=== PATIENT | male | born 1990 | race Caucasian/White ===

== ENCOUNTER 2016-08-20 11:22 | Emergency (ER) | payer BC, OTHER ==
[~2016-08-20] VITALS: Ht 182.9 cm; Wt 71.9 kg
[~2016-08-20 11:22] MED LIST: FISHOIL PO
[2016-08-20 11:27] VITALS: TEMP 36.8; Ht 182.9 cm; Wt 71.9 kg
[2016-08-20 12:00] LABS: BASO % 0.4 %; BASO ABS # 0.02 K/uL (0-0.2); COMPLETE YES; HEMATOCRIT 41.6 % (42-52); IG% 0.4 %; LYMPH % 44.4 %; LYMPH ABS # 2.22 K/uL (1.2-3.4); MEAN CELL VOLUME 83.4 fL (80-100); MEAN CORPUSCULAR HEMOGLOBIN 30.1 pg (25-34); MEAN CORPUSCULAR HGB CONC 36.1 g/dl (32-36); MEAN PLATELET VOLUME 9.4 fL (7.4-10.4); MONO % 5.8 %; PLATELET COUNT 204 K/uL (130-400); RED BLOOD COUNT 4.99 M/uL (4.7-6.1)
[2016-08-20 12:29] LABS: ALT/SGPT 24 U/L (12-78); BLOOD UREA NITROGEN 11 mg/dl (7-18); BUN/CREATININE RATIO 10.6 (10-20); CARBON DIOXIDE 28 mmol/L (21-32); CHLORIDE 104 mmol/L (98-107); GLUCOSE 100 mg/dl (70-99); POTASSIUM 3.6 mmol/L (3.5-5.1); SODIUM 140 mmol/L (136-145)
[2016-08-20 12:33] LABS: ALB/GLOB RATIO 1.6 (0.9-2); ALKALINE PHOSPHATASE 80 U/L (45-117); AST/SGOT 13 U/L (15-37)
[2016-08-20 13:00] VITALS: BP 137/80; O2SAT 98
[2016-08-20] MEDS ORDERED: MELA3TAB PO (13:25)
--- NOTE | 2016-08-20 13:51 | DIAGNOSTIC IMAGING REPORT ---
CHEST 2 VIEWS ROUTINE CLINICAL HISTORY: left sided chest pain dyspnea COMPARISON STUDY: 06/11/2006 FINDINGS: The bones soft tissues and hemidiaphragms are normal. The cardiomediastinal silhouette is normal. The lungs are clear. The pulmonary vasculature is normal. IMPRESSION: Negative chest. Electronically signed by: Eldon Fritz M.D. 08/20/2016 1:49 PM Dictated Date/Time: 08/20/2016 1:48 PM
[2016-08-20 13:52] VITALS: PULSE 69
--- NOTE | 2016-08-20 14:15 | EMERGENCY ROOM VISIT NOTE ---
History First contact with patient: 11:33 Chief Complaint: CHEST PAIN Stated Complaint: LEFT SIDED CHEST PAIN Nursing Triage Summary: PT VERBALIZES HE WOKE UP WITH SHARP CHEST PAIN, HAS NOT GONE AWAY. PT VERBALIZES PAIN IS IN LEFT UPPER CHEST 3/10. DENIES SOB. History of Present Illness The patient is a 25 year old male who presents to the Emergency Room with complaints of left-sided chest pain and she can this morning. The patient states that he has had a sharp pain in the left side of his chest since he woke up several hours ago. He states the pain is worse when he is sitting than when he is standing. He does have some mild pain in the right side of the chest as well, but states it is worse on the left. He has had similar symptoms in the past when he has had pneumonia. He rates the discomfort a 3/10. The patient denies any shortness of breath. He denies any cough, fevers or recent illnesses. He denies any family history of heart disease at a young age. He denies any radiation of the pain. He has not taken any medications at home for his discomfort. Review of Systems A complete 10-point Review of Systems was discussed with the patient, with pertinent positives and negatives listed in the History of Present Illness. All remaining Review of Systems questions can be considered negative unless otherwise specified. Social History Smoking Status: Never Smoker Alcohol Use: occasionally Marital Status: single Occupation Status: employed Current/Historical Medications Scheduled Melatonin (Melatonin), 1 TAB PO HS Allergies Coded Allergies: Azithromycin (Verified Allergy, Mild, HIVES, 08/20/16) Physical Exam Vital Signs Date Time Temp Pulse Resp B/P Pulse Ox O2 Delivery O2 Flow Rate FiO2 08/20/16 13:52 69 08/20/16 13:00 80 18 137/80 98 Room Air 08/20/16 11:27 36.8 93 18 123/80 98 Room Air Physical Exam VITALS: Vitals are noted on the nurse's note and reviewed by myself. Vital signs stable. GENERAL: This is a 25-year-old male, in no acute distress, nondiaphoretic, well- developed well-nourished. SKIN: Capillary reflex less than 2 seconds. HEENT: Normocephalic. PERRLA. EOMI. Nares patent. Mucous membranes moist. Neck is supple without nuchal rigidity. HEART: Regular rate and rhythm without murmurs gallops or rubs. LUNGS: Clear to auscultation bilaterally without wheezes, rales or rhonchi. No retractions or accessory muscle use. ABDOMEN: Positive bowel sounds x 4. Soft, nontender to palpation. NEURO: Patient was alert and oriented to person place and time. Medical Decision & Procedures ER Provider Diagnostic Interpretation: CHEST 2 VIEWS ROUTINE CLINICAL HISTORY: left sided chest pain dyspnea COMPARISON STUDY: 06/11/2006 FINDINGS: The bones soft tissues and hemidiaphragms are normal. The cardiomediastinal silhouette is normal. The lungs are clear. The pulmonary vasculature is normal. IMPRESSION: Negative chest. Laboratory Results 08/20/16 11:40 Red Blood Count 4.99, Mean Corpuscular Volume 83.4, Mean Corpuscular Hemoglobin 30.1, Mean Corpuscular Hemoglobin Concent 36.1, Mean Platelet Volume 9.4, Neutrophils (%) (Auto) 48.0, Lymphocytes (%) (Auto) 44.4, Monocytes (%) (Auto) 5.8, Eosinophils (%) (Auto) 1.0, Basophils (%) (Auto) 0.4, Neutrophils # (Auto) 2.40, Lymphocytes # (Auto) 2.22, Monocytes # (Auto) 0.29, Eosinophils # (Auto) 0.05, Basophils # (Auto) 0.02 08/20/16 11:40 Test 08/20/16 11:40 White Blood Count 5.00 K/uL (4.8-10.8) Red Blood Count 4.99 M/uL (4.7-6.1) Hemoglobin 15.0 g/dL (14.0-18.0) Hematocrit 41.6 % (42-52) Mean Corpuscular Volume 83.4 fL (80-100) Mean Corpuscular Hemoglobin 30.1 pg (25-34) Mean Corpuscular Hemoglobin Concent 36.1 g/dl (32-36) Platelet Count 204 K/uL (130-400) Mean Platelet Volume 9.4 fL (7.4-10.4) Neutrophils (%) (Auto) 48.0 % Lymphocytes (%) (Auto) 44.4 % Monocytes (%) (Auto) 5.8 % Eosinophils (%) (Auto) 1.0 % Basophils (%) (Auto) 0.4 % Neutrophils # (Auto) 2.40 K/uL (1.4-6.5) Lymphocytes # (Auto) 2.22 K/uL (1.2-3.4) Monocytes # (Auto) 0.29 K/uL (0.11-0.59) Eosinophils # (Auto) 0.05 K/uL (0-0.5) Basophils # (Auto) 0.02 K/uL (0-0.2) RDW Standard Deviation 37.1 fL (36.4-46.3) RDW Coefficient of Variation 12.2 % (11.5-14.5) Immature Granulocyte % (Auto) 0.4 % Immature Granulocyte # (Auto) 0.02 K/uL (0.00-0.02) Anion Gap 8.0 mmol/L (3-11) Est Creatinine Clear Calc Drug Dose 113.8 ml/min Estimated GFR () 119.9 Estimated GFR (Non- 103.4 BUN/Creatinine Ratio 10.6 (10-20) Calcium Level 9.0 mg/dl (8.5-10.1) Total Bilirubin 1.1 mg/dl (0.2-1) Aspartate Amino Transf (AST/SGOT) 13 U/L (15-37) Alanine Aminotransferase (ALT/SGPT) 24 U/L (12-78) Alkaline Phosphatase 80 U/L (45-117) Troponin I < 0.015 ng/ml (0-0.045) Total Protein 7.3 gm/dl (6.4-8.2) Albumin 4.5 gm/dl (3.4-5.0) Globulin 2.8 gm/dl (2.5-4.0) Albumin/Globulin Ratio 1.6 (0.9-2) ECG Indication: chest pain Rate (beats per minute): 75 Rhythm: normal sinus (sinus arrhythmia) Findings: no acute ischemic change, no ectopy Comparison ECG Date: no prior available Medical Decision Differential diagnosis includes acute coronary syndrome, pulmonary embolism, pneumothorax, pericarditis, myocarditis, endocarditis, anxiety, musculoskeletal pain, GERD, costochondritis, pneumonia, among others. The patient was evaluated as above. Labs were drawn and IV access was obtained. Imaging studies were performed and read by radiology as above. The patient was reassessed multiple times during their stay in the emergency department and remained in stable condition. The patient is a 25-year-old male who presents today complaining of onset of chest pain. Labs revealed no leukocytosis, anemia or concerning electrolyte abnormalities. Troponin was not elevated. There is very low clinical suspicion of pulmonary embolism given this patient's presentation and lack of risk factors. EKG showed a normal sinus rhythm without evidence of ischemia or ectopy. Chest x-ray was unremarkable. I feel his pain is most likely musculoskeletal or possibly pleuritis. I instructed him to take ibuprofen at home and follow-up with his primary care provider for further evaluation. The patient and his mother were agreeable to this assessment and treatment plan. Based on the patient's presentation, lab results, and imaging studies, I feel the patient is stable for outpatient treatment. Discharge instructions were reviewed with the patient. The patient verbalized understanding of my assessment and treatment plan and was discharged home in good condition. Impression Primary Impression: Chest wall pain Departure Information Dispostion Home / Self-Care Condition GOOD Referrals Eder Pandya MD (PCP) Patient Instructions My [facility] Additional Instructions You have been treated in the Emergency Department for your Non-Cardiac Chest Pain. Laboratory results and Imaging Studies have ruled out any cardiac or pulmonary cause of your chest pain. For pain control, you can use the following [id number] medicines (if >12 yo): - Regular strength (325mg/tab) Tylenol (acetaminophen) 2 tabs every 4-6 hours as needed. Do not exceed 12 tablets in a 24 hour period. Avoid taking more than 4 grams (4000 mg) of Tylenol per day. This includes any other sources of acetaminophen you may take on a regular basis. - Regular strength (200 mg/tab) Advil (ibuprofen) 1-2 tabs every 4-6 hours as needed. Do not exceed a dose of 3200 mg per day. You should schedule a follow-up appointment with your Primary Care Provider in 2 -3 days for further evaluation from today's Emergency Department visit. Return to the Emergency Department if your current symptoms worsen despite treatment course outlined above, or if you develop any of the following symptoms : worsening chest pain, associated jaw/arm pain, nausea, dizziness, shortness of breath, bloody cough, or fainting.
== END 2016-08-20 14:21 | disposition home or self-care (01) ==
LOC: C.EDB 11:23 → C.EDC 14:21
DX: R07.89 Other chest pain (principal); Z88.1 Allergy status to other antibiotic agents